=== PATIENT | female | born 1940 | race Caucasian/White ===

== ENCOUNTER 2023-10-06 10:56 | Day surgery (SDC) | payer MEDICARE ==
[2023-10-03 10:38] VITALS: BMI 21.9
[~2023-10-06 10:56] MED LIST: ALPRAZolam 0.25 MG TAB PO PRN; HEPARIN SODIUM,PORCINE (1 ML) 2,500 UNIT in SODIUM CHLORIDE 0.9% 250 ML IRRIGATION PRN; HEPARIN SODIUM,PORCINE 10,000 UNIT in SODIUM CHLORIDE 0.9% 1,000 ML IRRIGATION PRN; ZOLPIDEM 5 MG TAB PO PRN
[2023-10-06] MEDS: SODIUM CHLORIDE 0.9% 1,000 ML IV ONE (11:07)
[2023-10-06 11:37] LABS: Basophils % (A) 1 %; Eosinophils # (A) 0.2 k/uL (0-0.7); Eosinophils % (A) 4 %; HCT 38.3 % (34.0-46.0); HGB 12.4 gm/dL (11.4-16.0); Lymphocytes % (A) 22 %; MCH 32.1 pg (25.0-35.0); MCHC 32.3 g/dL (31.0-37.0); MCV 99.4 fL (80.0-100.0); Mean Platelet Volume 9.1; Monocytes # (A) 0.3 k/uL (0-1.0); Monocytes % (A) 6 %; Neutrophils # (A) 2.9 k/uL (1.3-7.7); Neutrophils % (A) 64 %; Platelet Count 185 k/uL (150-450); RBC 3.86 m/uL (3.80-5.40); RDW 13.5 % (11.5-15.5); WBC 4.5 k/uL (3.8-10.6)
[2023-10-06] MEDS: ASPIRIN 325 MG TAB PO PRN (11:37)
[2023-10-06 11:46] LABS: African American GFR (CKD) 90 (>60 ml/min/1.73 sqM); Anion Gap 1 mmol/L; Blood Urea Nitrogen 18 mg/dL (7-17); Calcium 8.9 mg/dL (8.4-10.2); Carbon Dioxide 29 mmol/L (22-30); Chloride 108 mmol/L (98-107); Glucose 95 mg/dL (74-99); Non-African American GFR(CKD) 78 (>60 ml/min/1.73 sqM); Potassium 3.9 mmol/L (3.5-5.1); Sodium 138 mmol/L (137-145)
[2023-10-06] MEDS: MIDAZOLAM 2 MG/2 ML VIAL IVP ONE (14:21)
[2023-10-06] MEDS: fentaNYL (PF) 50 MCG/ML 2 ML AMP IVP ONE (14:32)
--- NOTE | 2023-10-06 15:11 | IR ---
EXAMINATION TYPE: IR angio abdominal w runoff DATE OF EXAM: 10/06/2023 COMPARISON: NONE HISTORY: Fluoroscopy time. Fluoroscopy was provided to the referring clinician.
[2023-10-06 15:52] VITALS: RESP 18; TEMP 97.3
[2023-10-06 17:14] VITALS: PULSE 64
[2023-10-06] MEDS: EMPTY BAG 1 BAG with SODIUM CHLORIDE 0.9% 1,000 ML IV SCH (18:28)
[2023-10-06] MEDS: SODIUM CHLORIDE 0.9% 1,000 ML IV SCH (18:30)
[2023-10-06 19:09] VITALS: BP 160/80
--- NOTE | 2023-10-06 19:26 | P.PCN ---
Date of Procedure: 10/06/23 Operative Findings: AN ABDOMINAL AORTOGRAM AND BILATERAL LOWER EXTREMITIES RUNOFF PERFORMING PHYSICIAN: Caleb Jade MD PROCEDURE PERFORMED: 1. An abdominal aortogram 2. Bilateral lower extremities runoff 3. Ultrasound guided access of the right common femoral artery INDICATION: Intermittent claudication COMPLICATION: None LEVEL OF SEDATION: Moderate was sedation length of 12 minutes APPROACH: Right common femoral artery PROCEDURE DESCRIPTION: After obtaining informed consent and explaining the procedure benefits, risks, and complications, the patient was brought to the cardiac can labeler. The right groin was prepped and draped in sterile fashion. The right common femoral artery was cannulated using micropuncture technique, under ultrasound guidance. A micropuncture wire was advanced, and the micropuncture sheath was advanced over the wire, then the micropuncture sheath was exchanged over an 0.35 wire into a 5-Telugu sheath dilator assembly then the wire and dilator were removed and sheath was flushed. We did an abdominal aortogram and bilateral lower extremities runoff using 5-F rench pigtail catheter using a power injection. The catheter was initially placed at the level of the renal arteries, and it was pulled into above the bifurcation of the aorta into right and left common iliac arteries. The procedure was completed and there was no complications. SELECTIVE PERIPHERAL ANGIOGRAM: The abdominal aorta: Is angiographically normal The common iliac arteries: Have mild disease only The external iliac arteries: Have mild disease only The internal iliac arteries: Are patent The common femoral arteries: Have mild disease only Superficial femoral arteries: The right SFA has mild disease only The left SFA has critical disease in the proximal portion Popliteal arteries: Have mild disease on Below the knees: Poorly visualized CONCLUSION: Critical left SFA disease POSTPROCEDURE MANAGEMENT: CREOSOTING ENGINEER
== END 2023-10-06 20:51 | disposition home or self-care (01) ==
LOC: CATHCVL 10:56 → 6NMEDSUR 14:42 → CATHCVL 20:51
PROVIDERS: ATTEND Internal Medicine Interventional Cardiology
DX: I73.9 Peripheral vascular disease, unspecified (principal); I10 Essential (primary) hypertension; E78.5 Hyperlipidemia, unspecified; F17.210 Nicotine dependence, cigarettes, uncomplicated; Z79.899 Other long term (current) drug therapy
CPT/HCPCS: 36200; 75625; 75716; 76937; 80048; 85025; C1769 ×3; C1894; J2250; J3010

== ENCOUNTER → 2023-11-03 | Outpatient (CLI) | payer MEDICARE ==
--- NOTE | 2023-11-03 18:33 | BD ---
EXAMINATION TYPE: Axial Bone Density DATE OF EXAM: 11/03/2023 CLINICAL HISTORY: 82 years old Female. 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 Menopause before 45: no at age 46 yrs old, full hyst. RISK FACTORS HISTORY OF: hx of breast cancer x2 and anal cancer hx of left hand as an adult. MEDICATIONS: hx of breast cancer, and anal cancer, chemo x2 and radiation x2 Thyroid Medications: yes, synthroid product for about 2 yrs Osteoporosis Medications: yes, Prolia every 6 months, for 5+ yrs, prior used reclast. EXAM MEASUREMENTS: Bone mineral densitometry was performed using the Misoca System. Bone mineral density as measured about the Lumbar spine is: ----- L1-L4(G/cm2): 1.121 T Score Values are as follows: ----- L1: -1.0 ----- L2: -0.5 ----- L3: -0.8 ----- L4: 0.0 ----- L1-L4: -0.5 Z Score Values are as follows: ----- L1: 1.1 ----- L2: 1.7 ----- L3: 1.3 ----- L4: 2.2 ----- L1-L4: 1.7 Bone mineral density is her first bone density at [facility]. Bone mineral density about the R hip (g/cm2): 0.813 Bone mineral density about the L hip (g/cm2): 0.800 T Score values are as follows: -----R Neck: -1.6 -----L Neck: -2.0 -----R Total: -1.5 -----L Total: -1.6 Z Score values are as follows: -----R Neck: 0.9 -----L Neck: 0.5 -----R Total: 0.9 -----L Total: 0.8 Bone mineral density is her first bone density at [facility]. FRAX%s: The graph provided illustrates a 21.7% chance for a major osteoporotic fx and a 6.3% chance f or the hips probability for fx in 10 years time. IMPRESSION: Osteopenia (T Score between -2.5 and -1). There is slightly increased risk of fracture and the patient may be considered for treatment. Re-Screen 2-5 years. NOTE: T-SCORE=SD OF THE YOUNG ADULT MEAN.
== END | disposition home or self-care (01) ==
LOC: RADBDWWP 12:36
PROVIDERS: ATTEND Internal Medicine
DX: M85.89 Other specified disorders of bone density and structure, multiple sites (principal); M81.0 Age-related osteoporosis without current pathological fracture; Z78.0 Asymptomatic menopausal state; Z85.3 Personal history of malignant neoplasm of breast
CPT/HCPCS: 77080

== ENCOUNTER 2023-11-15 06:40 | Day surgery (SDC) | payer MEDICARE ==
[2023-11-15] MEDS ORDERED: ASPIRIN 325 MG TAB PO PRN (06:53)
[2023-11-15] MEDS: SODIUM CHLORIDE 0.9% 1,000 ML in EMPTY BAG 1 BAG IV ONE (07:10)
[2023-11-15 07:37] LABS: Basophils % (A) 1 %; Eosinophils # (A) 0.2 k/uL (0-0.7); Eosinophils % (A) 4 %; HCT 39.1 % (34.0-46.0); HGB 12.7 gm/dL (11.4-16.0); Lymphocytes # (A) 1.1 k/uL (1.0-4.8); Lymphocytes % (A) 24 %; MCH 32.4 pg (25.0-35.0); MCHC 32.4 g/dL (31.0-37.0); MCV 99.8 fL (80.0-100.0); Mean Platelet Volume 8.6; Monocytes # (A) 0.4 k/uL (0-1.0); Monocytes % (A) 8 %; Neutrophils # (A) 2.9 k/uL (1.3-7.7); Neutrophils % (A) 61 %; Platelet Count 186 k/uL (150-450); RBC 3.91 m/uL (3.80-5.40); RDW 13.3 % (11.5-15.5); WBC 4.7 k/uL (3.8-10.6)
[2023-11-15 07:38] LABS: African American GFR (CKD) 87 (>60 ml/min/1.73 sqM); Anion Gap 3 mmol/L; Blood Urea Nitrogen 19 mg/dL (7-17); Calcium 9.2 mg/dL (8.4-10.2); Carbon Dioxide 26 mmol/L (22-30); Chloride 110 mmol/L (98-107); Glucose 83 mg/dL (74-99); Non-African American GFR(CKD) 75 (>60 ml/min/1.73 sqM); Potassium 3.9 mmol/L (3.5-5.1); Sodium 139 mmol/L (137-145)
[2023-11-15] MEDS: ALPRAZolam 0.5 MG TAB PO PRN (08:10)
[2023-11-15] MEDS: SODIUM CHLORIDE 0.9% 1,000 ML IV ONE (09:31)
[2023-11-15] MEDS ORDERED: HEPARIN SODIUM 1,000 UN/ML (10ML VL) ONE (09:54)
[2023-11-15] MEDS: MIDAZOLAM 2 MG/2 ML VIAL IVP ONE (10:10)
[2023-11-15] MEDS: LIDOCAINE 1% INJ 10MG/ML (20 ML MDV) SQ ONE (10:12)
[2023-11-15] MEDS ORDERED: fentaNYL (PF) 50 MCG/ML 2 ML AMP ONE (10:13)
[2023-11-15] MEDS: fentaNYL (PF) 50 MCG/ML 2 ML AMP IVP ONE (10:15)
[2023-11-15] MEDS: HEPARIN SODIUM 1,000 UN/ML (10ML VL) IVP ONE (10:19)
[2023-11-15] MEDS ORDERED: CLOPIDOGREL 75 MG TAB ONE (10:30)
[2023-11-15] MEDS: CLOPIDOGREL 75 MG TAB PO ONE (10:33)
[2023-11-15] MEDS ORDERED: niCARdipine 25 MG/10 ML VIAL ONE (10:47)
[2023-11-15] MEDS: niCARdipine Syringe (1,000 mcg/10 mL) INTRAARTER ONE (10:48)
[2023-11-15] MEDS: NITROGLYCERIN 1000MCG/10ML SYRINGE INTRAARTER ONE (10:48)
[2023-11-15] MEDS: IOPAMIDOL-370 100ML BTL INJ ONE (10:49)
[2023-11-15] MEDS ORDERED: NITROGLYCERIN SL TABS 0.4 MG TAB SUBLINGUAL PRN (11:03)
[2023-11-15] MEDS ORDERED: RX INFO: IV CONTRAST WAS GIVEN 1 EACH MISC MISCELLANE PRN (11:03)
[2023-11-15] MEDS ORDERED: ATROPINE SULFATE 0.1 MG/ML 10ML SYRINGE IV PRN (11:03)
[2023-11-15] MEDS ORDERED: MAG HYDROX/AL HYDROX/SIMETH 30 ML CUP PO PRN (11:03)
--- NOTE | 2023-11-15 11:08 | P.PCN ---
Date of Procedure: 11/15/23 Operative Findings: PERCUTANEOUS PERIPHERAL INTERVENTION Performing physician Caleb Jade M.D. Procedure performed 1. Successful balloon angioplasty of the proximal left SFA with adjunctive use of atherectomy and intravascular ultrasound 2. Left lower extremity angiogram and right common femoral artery angiogram 3. Gradient measurement across the left common iliac artery 4. Ultrasound-guided access of the right common femoral artery Indication Left lower extremity intermittent claudication in this 82-year-old female patient who underwent an angiogram and that revealed severe left SFA disease Approach Right common femoral artery Complications None Level of sedation Moderate with a sedation time of 43 minutes Procedure description After obtaining informed consent the patient was brought to the cardiac In Tube Conversion Technician. The right common femoral artery was cannulated using micropuncture techni que under ultrasound guidance the micropuncture wire passed easily then I placed a 6 Taiwanese 70 cm sheath at the right common femoral artery. Using 5 Taiwanese rim catheter was able to go up and over and the catheter was advanced over the 035 stiff Glidewire and rim catheter. The catheter was positioned at the left common femoral artery with left common femoral artery angiogram was performed and showed two-vessel runoff below the knee with anterior tibial and peroneal with severe disease involving the left SFA. Subsequently I did wired the lesion using a 140 wire. Subsequently I did intravascular ultrasound which showed a soft plaque. Atherectomy was performed using the Hawk 1 device with extraction of plaque. Subsequently balloon angioplasty was performed using regular 5 mm balloon and subsequently 5 mm drug-coated balloon with an angiogram showing good angiographic results. Finally gradient measurement was performed across the left common iliac artery and the gradient came to be at 10 mmHg which is nonsignificant. Subsequently I did exchange the 70 cm sheath into 10 cm sheath using stiff Glidewire. By the end selective right common femoral artery angiogram was performed and the procedure was completed with no complication Postprocedure management 1. Dual antiplatelet therapy 2. Aggressive cholesterol control 3. Risk factors modification 4. Follow-up with the patient
[2023-11-15] MEDS ORDERED: DENOSUMAB 60 MG/ML 1 ML SYRINGE SQ SCH (11:15)
--- NOTE | 2023-11-15 14:02 | IR ---
EXAMINATION TYPE: IR machine captain femoral popliteal Intraoperative/procedural fluoroscopic services were provi ded. CLINICAL INDICATION:Female, 82 years old with history of left leg pain, 10.2min fluoro, 12.3Gycm2; , [facility] Total fluoroscopy time is 10.1 min. DAP: 3.41 Gycm2 uGym2 Please see the operative/procedural note for further details.
[2023-11-15 15:54] VITALS: RESP 16
[2023-11-15] MEDS: SODIUM CHLORIDE 0.9% 1,000 ML in EMPTY BAG 1 BAG IV SCH (16:25)
[2023-11-15] MEDS: ACETAMINOPHEN TAB 325 MG TAB PO PRN (17:04)
[2023-11-15] MEDS: traZODone HCL 100 MG TAB PO SCH (20:52)
[2023-11-15] MEDS: IPRATROPIUM BROMIDE 0.06% NASAL SPRAY (15 ML) EA NOSTRIL SCH (20:52)
[2023-11-15] MEDS: ATORVASTATIN 10 MG TAB PO SCH (20:52)
[2023-11-15] MEDS: ASPIRIN 81 MG PO SCH (20:52)
[2023-11-15] MEDS: CALCIUM CARBONATE 500 MG CHEWABLE PO SCH (20:52)
[2023-11-15] MEDS ORDERED: THC PO SCH (21:00)
[2023-11-15] MEDS: ZOLPIDEM 5 MG TAB PO PRN (23:51)
[2023-11-16] MEDS: LEVOTHYROXINE 50 MCG TAB PO SCH (06:15)
[2023-11-16 08:02] LABS: African American GFR (CKD) >90 (>60 ml/min/1.73 sqM); Anion Gap 4 mmol/L; Blood Urea Nitrogen 13 mg/dL (7-17); Calcium 8.9 mg/dL (8.4-10.2); Carbon Dioxide 24 mmol/L (22-30); Chloride 110 mmol/L (98-107); Glucose 88 mg/dL (74-99); Non-African American GFR(CKD) 84 (>60 ml/min/1.73 sqM); Sodium 138 mmol/L (137-145)
[2023-11-16 09:26] VITALS: BP 112/67; PULSE 67; TEMP 98
--- NOTE | 2023-11-16 09:55 | P.DS ---
Providers Attending physician: Caleb Jade Consults: 11/15/23 11:03 Consult Physician Routine Consulting Provider: [facility] Consult Reason/Comments: Post Interventional patient Do you want consulting provider notified?: Already Contacted Primary care physician: Epi Chambers Hospital Course: This is an 82-year-old patient who underwent balloon angioplasty of the proximal left SFA yesterday with Dr. Jade. Patient examined this morning the bedside. Patient states her leg feels significantly better this morning. Patient has positive pulses. She denies chest pain or shortness of breath. Vital signs are stable. The patient is being discharged home on dual antiplatelet therapy with aspirin and Plavix for at least 6 months. Patients atorvastatin also increased to 40 mg at night Patient is stable for discharge home today. Please see EMR for further hospital course details Discharge diagnosis Left lower extremity intermittent claudication, status post balloon angioplasty of proximal left SFA Nurse practitioner note has been reviewed by physician. Signing provider agrees with the documented findings, assessment, and plan of care documented by HEAVY TRUCK MECHANIC as a scribe. Plan - Discharge Summary Discharge Rx Participant: No New Discharge Prescriptions: New Atorvastatin [Lipitor] 40 mg PO HS #90 tablet Clopidogrel [Plavix] 75 mg PO DAILY #90 tablet Continue Ipratropium [place] 0.06%Nasal [Atrovent Nasal 0.06%] 2 spray EA NOSTRIL BID Levothyroxine Sodium [Synthroid] 50 mcg PO QAM traZODone HCL 200 mg PO HS Denosumab [Prolia] 60 mg SQ Q182D Thc 200 mg PO HS Calcium Citrate 500 mg PO BID Aspirin [Adult Low Dose Aspirin EC] 81 mg PO HS Discharge Medication List Aspirin [Adult Low Dose Aspirin EC] 81 mg PO HS 10/03/23 [History] Calcium Citrate 500 mg PO BID 10/03/23 [History] Denosumab [Prolia] 60 mg SQ Q182D 10/03/23 [History] Ipratropium [place] 0.06%Nasal [Atrovent Nasal 0.06%] 2 spray EA NOSTRIL BID 10/03/23 [History] Levothyroxine Sodium [Synthroid] 50 mcg PO QAM 10/03/23 [History] Thc 200 mg PO HS 10/03/23 [History] traZODone HCL 200 mg PO HS 10/03/23 [History] Atorvastatin [Lipitor] 40 mg PO HS #90 tablet 11/16/23 [Rx] Clopidogrel [Plavix] 75 mg PO DAILY #90 tablet 11/16/23 [Rx] Follow up Appointment(s)/Referral(s): Caleb Jade MD [STAFF PHYSICIAN] - 1 Week (office will call with follow up appt date and time) Patient Instructions/Handouts: Peripheral Vascular Angioplasty (DC)
[2023-11-16] MEDS: CLOPIDOGREL 75 MG TAB PO SCH (10:09)
== END 2023-11-16 11:19 | disposition home or self-care (01) ==
LOC: CATHCVL 06:40 → 3SCARD 14:32 → CATHCVL 11-16 11:19
PROVIDERS: ATTEND Internal Medicine Interventional Cardiology
DX: I70.213 Atherosclerosis of native arteries of extremities with intermittent claudication, bilateral legs (principal)
CPT/HCPCS: 37225; 37252; 80048 ×2; 85025; C1894 ×2; C1769 ×4; C1725; C1714; C1753; C2623; J2250; J2001; J3010; J1644; Q9967; J2305

== ENCOUNTER → 2023-12-06 | Outpatient (CLI) | payer MEDICARE ==
--- NOTE | 2023-12-06 12:49 | US ---
EXAMINATION TYPE: US kidneys/renal and bladder DATE OF EXAM: 12/06/2023 COMPARISON: NONE CLINICAL INDICATION: Female, 83 years old with history of R94.4 Decreased GFR; Patient states leaky b ladder, Hx of anal cancer and radiation treatment in 2021; Patient denies any other signs or symptoms at this time EXAM MEASUREMENTS: Right Kidney: 8.4 x 4.6 x 4.4 Left Kidney: 9.0 x 5.0 x 4.5 Post Void Residual Volume: NAmL Right Kidney: Multiple calcifications seen throughout Left Kidney: Multiple calcifications seen throughout Bladder: Not fully distended; patient stated bladder felt full Bilateral Jets seen: No Normal Post Void Residual: NA There is no evidence for hydronephrosis at this point in time. No nephrolithiasis is seen. No peterson s are identified. The urinary bladder is anechoic. IMPRESSION: 1. No evidence for obstructive uropathy. 2. Nonobstructing bilateral renal calculi versus echogenic renal sinus fat.
== END | disposition home or self-care (01) ==
LOC: RADUSWWP 11:20
PROVIDERS: ATTEND Internal Medicine
DX: N20.0 Calculus of kidney (principal); R94.4 Abnormal results of kidney function studies
CPT/HCPCS: 76770

== ENCOUNTER → 2024-03-07 | Outpatient (CLI) | payer MEDICARE ==
--- NOTE | 2024-03-07 14:01 | XR ---
EXAMINATION TYPE: XR lumbar spine 2 or 3V DATE OF EXAM: 03/07/2024 CLINICAL HISTORY: pain TECHNIQUE: Three views of the lumbar spine are submitted. COMPARISON: None. FINDINGS: There are 5 lumbar type vertebral bodies identified. The lumbar spine shows satisfactory alignment w ithout evidence of acute fracture or dislocation. Vertebral body heights are within normal limits. Multilevel disc space narrowing with endplate sclerosis and anterior osteophytosis. Multilevel facet arthropathy. The overlying soft tissue appears unremarkable. Atherosclerotic calcification of the ao rta. IMPRESSION: 1. No acute fracture or dislocation is seen in the lumbar spine. 2. Mild to moderate multilevel degenerative disc disease and facet arthropathy. [facility], , 03/07/2024 1:59 PM
== END | disposition home or self-care (01) ==
LOC: RADXRMAIN 13:01
PROVIDERS: ATTEND Internal Medicine
CPT/HCPCS: 72100

== ENCOUNTER 2024-05-07 08:50 | Day surgery (SDC) | payer MEDICARE ==
[~2024-05-07 08:50] MED LIST changes: -ALPRAZolam 0.25 MG TAB PO PRN; +ALPRAZolam 0.5 MG TAB PO PRN; -HEPARIN SODIUM,PORCINE (1 ML) 2,500 UNIT in SODIUM CHLORIDE 0.9% 250 ML IRRIGATION PRN; -HEPARIN SODIUM,PORCINE 10,000 UNIT in SODIUM CHLORIDE 0.9% 1,000 ML IRRIGATION PRN; +NITROGLYCERIN SL TABS 0.4 MG TAB SUBLINGUAL PRN; -ZOLPIDEM 5 MG TAB PO PRN
[2024-05-07] MEDS: ATORVASTATIN 80 MG TAB PO STA (09:29)
[2024-05-07] MEDS: ASPIRIN 325 MG TAB PO STA (09:29)
[2024-05-07] MEDS: EMPTY BAG 1 BAG with SODIUM CHLORIDE 0.9% 1,000 ML IV ONE (09:42)
[2024-05-07 09:48] LABS: Basophils % (A) 0 %; Eosinophils # (A) 0.1 k/uL (0-0.7); Eosinophils % (A) 1 %; HCT 40.3 % (34.0-46.0); HGB 13.2 gm/dL (11.4-16.0); Lymphocytes # (A) 1.2 k/uL (1.0-4.8); Lymphocytes % (A) 22 %; MCHC 32.8 g/dL (31.0-37.0); MCV 97.5 fL (80.0-100.0); Mean Platelet Volume 8.8; Monocytes # (A) 0.3 k/uL (0-1.0); Monocytes % (A) 6 %; Neutrophils # (A) 3.9 k/uL (1.3-7.7); Neutrophils % (A) 69 %; Platelet Count 167 k/uL (150-450); RBC 4.14 m/uL (3.80-5.40); RDW 13.4 % (11.5-15.5); WBC 5.6 k/uL (3.8-10.6)
[2024-05-07 09:54] LABS: African American GFR (CKD) 77 (>60 ml/min/1.73 sqM); Anion Gap 6 mmol/L; Blood Urea Nitrogen 22 mg/dL (7-17); Calcium 9.5 mg/dL (8.4-10.2); Carbon Dioxide 26 mmol/L (22-30); Chloride 106 mmol/L (98-107); Glucose 91 mg/dL (74-99); Non-African American GFR(CKD) 67 (>60 ml/min/1.73 sqM); Potassium 3.9 mmol/L (3.5-5.1); Sodium 138 mmol/L (137-145)
[2024-05-07] MEDS: IV FLUID CONTINUATION 1,000 ML IV ONE (10:16)
[2024-05-07] MEDS: HEPARIN SODIUM,PORCINE (1 ML) 2,500 UNIT in SODIUM CHLORIDE 0.9% 250 ML IRRIGATION PRN (10:47)
[2024-05-07] MEDS: HEPARIN SODIUM,PORCINE 10,000 UNIT in SODIUM CHLORIDE 0.9% 1,000 ML IRRIGATION PRN (10:47)
[2024-05-07] MEDS: MIDAZOLAM 2 MG/2 ML VIAL IVP ONE (10:48)
[2024-05-07] MEDS: LIDOCAINE 1% INJ 10MG/ML (20 ML MDV) SQ ONE (10:51)
[2024-05-07] MEDS: VERAPAMIL SYRINGE (5 MG/10 ML) INTRAARTER ONE (10:52)
[2024-05-07] MEDS: fentaNYL (PF) 50 MCG/1 ML VIAL IVP ONE (10:52)
[2024-05-07] MEDS: HEPARIN SODIUM 1,000 UN/ML (10ML VL) IV ONE (10:55)
[2024-05-07] MEDS: ENALAPRILAT 1.25 MG/ML 1 ML VIAL IV ONE (11:08)
[2024-05-07] MEDS: hydrALAZINE HCL 20 MG/ML 1 ML VIAL IV ONE (11:08)
[2024-05-07] MEDS: NITROGLYCERIN 1000MCG/10ML SYRINGE INTRACORON ONE (11:18)
[2024-05-07] MEDS: CLOPIDOGREL 75 MG TAB PO ONE (11:20)
[2024-05-07] MEDS: IOPAMIDOL-370 100ML BTL INJ ONE ×2 (11:23→11:39)
[2024-05-07] MEDS: IOPAMIDOL-250 100ML BTL INTRAARTER ONE (11:39)
[2024-05-07] MEDS ORDERED: DENOSUMAB 60 MG/ML 1 ML SYRINGE SQ SCH (11:45)
--- NOTE | 2024-05-07 11:52 | P.PCN ---
Date of Procedure: 05/07/24 Operative Findings: CARDIAC CATHETERIZATION AND PERCUTANEOUS CORONARY INTERVENTION PERFORMING PHYSICIAN: Caleb Jade MD, [facility] PROCEDURE PERFORMED: 1. Selective right and left coronary angiogram 2. Left heart catheterization 3. Successful stenting of mid LAD using 2.75 x 18 mm Xience STEFAN with an exce llent angiographic results 4. Adjunctive use of IVUS and Dobler wire 5. Ultrasound-guided access of the right radial artery INDICATION: Symptomatic 83-year-old female patient COMPLICATION: None APPROACH: Right radial art LEVEL OF SEDATION: Moderate with the sedation time off 30 minutes PROCEDURE DESCRIPTION: After obtaining informed consent the patient was brought to the cardiac Caustic Plant Worker with right radial artery was cannulated using micropuncture technique under ultrasound guidance a micropuncture wire passed easily then I placed a 6 English 11 cm sheath at the right radial artery and give the patient 2 mg of verapamil intra-arterial and 5000's of heparin intravenous. Selective right and left coronary angiogram performed using JR4 and JL 3.5 catheters with left heart catheterization was performed using a pigtail catheter. After that I decided to do an IFR of the LAD with after zeroing the Doppler wire and equalized in between the Doppler wire and guiding catheter which was JL 3.5 guiding catheter the left main was engaged and the LAD was wired. We did an IFR and that came in to be at 0.69. At that point I decided to intervene on the LAD with I did advance a whisper wire and I pulled the Dobler wire out because of his tortuous LAD and the whisper was going smoothly. I did after that intravascular ultrasound which revealed a diameter around 2.75 mm. Balloon angioplasty was performed using 2.5 mm balloon before I deployed 2.75 x 18 mm stent where the stent was positioned under fluoroscopy guidance and deployed under fluoroscopy guidance. Postdilatation was performed after IVUS was performed and that was performed using 2.75 mm NC balloon. Final angiogram showed excellent angiographic results and the patient tolerated the procedure very well SELECTIVE CORONARY ANGIOGRAM: The right coronary artery: Large caliber vessel and a dominant vessel with mild disease on Left main: Is angiographically normal. Bifurcates into an LCx and LAD The left circumflex: Large-caliber vessel nondominant vessel appears to be angiographically normal and gives rise into an OM which seems to be normal The left anterior descending artery: Large caliber vessel with intermediate to severe lesion involving the midportion documented to be flow-limiting by Doppler wire HEMODYNAMICS: The LVEDP was about 18 to 20 mmHg with no significant gradient across aortic valve CONCLUSION: Intermediate to severe disease involving the mid LAD documented to be flow- limiting by Doppler wire. I did perform PCI of the LAD POSTPROCEDURE MANAGEMENT: 1. Dual antiplatelet therapy using aspirin and Plavix for at least 6 month 2. Aggressive cholesterol control 3. Follow-up with the patient
--- NOTE | 2024-05-07 11:56 | P.PCN ---
Date of Procedure: 05/07/24 Operative Findings: AN ABDOMINAL AORTOGRAM AND BILATERAL LOWER EXTREMITIES RUNOFF PERFORMING PHYSICIAN: Caleb Jade MD PROCEDURE PERFORMED: 1. An abdominal aortogram 2. Bilateral lower extremities runoff INDICATION: Symptomatic 83-year-old female patient with abnormal lower extremities arterial duplex study COMPLICATION: None LEVEL OF SEDATION: Moderate was sedation length of moderate to sedation length of 12 minutes APPROACH: Right common femoral artery PROCEDURE DESCRIPTION: Regarding the access please refer to the heart catheterization procedure performed from the right radial approach. After that I did advance a 5 Polish pigtail catheter over 035 wire to the descending aorta under fluoroscopy guidance. The catheter was initially placed at the level of the renal arteries and it was advanced into above the bifurcation of the aorta at the right and left common iliac artery. The procedure was completed and there was no complications. SELECTIVE PERIPHERAL ANGIOGRAM: The abdominal aorta: Appears to be angiographically normal The common iliac arteries: Appears to be angiographically normal The external iliac arteries: The right external iliac artery appeared to have intermediate to severe lesion in the left external iliac artery appears to be normal The internal iliac arteries: Both internal iliac arteries are patent The common femoral arteries: The right common and left common femoral arteries appear to have intermediate to severe disease bilaterally Superficial femoral arteries: Both SFA appeared to be intact Popliteal arteries: Both popliteal this appears to be into Below the knees: 3 vessels in of below the knee bilaterally but overall the arteries were poorly visualized CONCLUSION: Intermediate to severe disease involving the right external iliac artery Intermediate to severe disease involving bilateral common femoral arteries POSTPROCEDURE MANAGEMENT: Consider medical treatment at this point
--- NOTE | 2024-05-07 12:10 | IR ---
Intraoperative/procedural fluoroscopic services were provided for angiogram with runoff. Total fluoro scopy time is 15.8 minutes with a total of 379 submitted images to PACS. Total DAP 17.9 Gycm2. Gisela ca see the operative note for further details. [facility], , 05/07/2024 12:08 PM
[2024-05-07] MEDS ORDERED: NITROGLYCERIN SL TABS 0.4 MG TAB SUBLINGUAL PRN (12:16)
[2024-05-07] MEDS ORDERED: ZOLPIDEM 5 MG TAB PO PRN (12:16)
[2024-05-07] MEDS ORDERED: ATROPINE SULFATE 0.1 MG/ML 10ML SYRINGE IV PRN (12:16)
[2024-05-07] MEDS ORDERED: RX INFO: IV CONTRAST WAS GIVEN 1 EACH MISC MISCELLANE PRN (12:16)
[2024-05-07] MEDS ORDERED: MAG HYDROX/AL HYDROX/SIMETH 30 ML CUP PO PRN (12:16)
[2024-05-07] MEDS: ACETAMINOPHEN TAB 325 MG TAB PO PRN (13:22)
[2024-05-07] MEDS: SODIUM CHLORIDE 0.9% 1,000 ML in EMPTY BAG 1 BAG IV SCH ×2 (13:24)
[2024-05-07] MEDS ORDERED: THC PO SCH (21:00)
[2024-05-07] MEDS: traZODone HCL 100 MG TAB PO SCH (21:43)
[2024-05-07] MEDS: CALCIUM CARBONATE 500 MG CHEWABLE PO SCH (21:43)
[2024-05-07] MEDS: ATORVASTATIN 40 MG TAB PO SCH (21:43)
[2024-05-07] MEDS: ALPRAZolam 0.25 MG TAB PO PRN (21:45)
[2024-05-08 03:00] VITALS: RESP 16
[2024-05-08] MEDS: IPRATROPIUM BROMIDE 0.06% NASAL SPRAY (15 ML) EA NOSTRIL SCH (05:20)
[2024-05-08] MEDS: LEVOTHYROXINE 50 MCG TAB PO SCH (06:01)
[2024-05-08 07:34] VITALS: BP 157/70; PULSE 67; TEMP 98
[2024-05-08] MEDS: CHOLECALCIFEROL 25 MCG (1000 IU) TABLET PO SCH (08:16)
[2024-05-08] MEDS: VIT A,C & E-LUTEIN-MINERALS 1 EACH TAB PO SCH (08:16)
[2024-05-08] MEDS: CLOPIDOGREL 75 MG TAB PO SCH (08:16)
[2024-05-08 08:28] LABS: African American GFR (CKD) 84 (>60 ml/min/1.73 sqM); Non-African American GFR(CKD) 73 (>60 ml/min/1.73 sqM)
[2024-05-08] MEDS: ASPIRIN 81 MG PO STA (09:37)
--- NOTE | 2024-05-08 10:11 | P.DS ---
Providers Attending physician: Caleb Jade Consults: 05/07/24 12:16 Consult Physician Routine Consulting Provider: [facility] Consult Reason/Comments: Post Interventional patient Do you want consulting provider notified?: Already Contacted Primary care physician: Epi Chambers [facility] Course: The patient is a pleasant 83-year-old female patient who underwent yesterday heart catheterization and PCI of the LAD She was seen and evaluated this morning. She is asymptomatic and hemodynamically stable. The patient is going to be discharged home on dual antiplatelet therapy along with a statin and I will follow-up with the patient next week in the office Plan - Discharge Summary New Discharge Prescriptions: No Action Ipratropium [place] 0.06%Nasal [Atrovent Nasal 0.06%] 2 spray EA NOSTRIL BID Levothyroxine Sodium [Synthroid] 50 mcg PO QAM traZODone HCL 200 mg PO HS Denosumab [Prolia] 60 mg SQ Q182D Thc 200 mg PO HS Calcium Citrate 1,000 mg PO BID Atorvastatin [Lipitor] 40 mg PO HS #90 tablet Clopidogrel [Plavix] 75 mg PO QAM Vit D3(Unknown Dose) 1 dose PO QAM Occuvite(Unknown Dose) 1 dose PO QAM Aspirin [Adult Low Dose Aspirin EC] 81 mg PO Discharge Medication List Calcium Citrate 1,000 mg PO BID 10/03/23 [History] Denosumab [Prolia] 60 mg SQ Q182D 10/03/23 [History] Ipratropium [place] 0.06%Nasal [Atrovent Nasal 0.06%] 2 spray EA NOSTRIL BID 10/03/23 [History] Levothyroxine Sodium [Synthroid] 50 mcg PO QAM 10/03/23 [History] Thc 200 mg PO HS 10/03/23 [History] traZODone HCL 200 mg PO HS 10/03/23 [History] Atorvastatin [Lipitor] 40 mg PO HS #90 tablet 11/16/23 [Rx] Clopidogrel [Plavix] 75 mg PO QAM 04/08/24 [History] Occuvite(Unknown Dose) 1 dose PO QAM 04/08/24 [History] Vit D3(Unknown Dose) 1 dose PO QAM 04/08/24 [History] Aspirin [Adult Low Dose Aspirin EC] 81 mg PO 05/08/24 [History] Follow up Appointment(s)/Referral(s): Caleb Jade MD [STAFF PHYSICIAN] - (OFFICE WILL CALL YOU FOR APPOINTMENT DATE AND TIME ) Patient Instructions/Handouts: *Surgery [facility] - After Heart Catheterization - Propeller Engineer Instructions, Moderate Sedation (DC), Angiography (DC) Activity/Diet/Wound Care/Special Instructions: NO DRIVING FOR THREE DAYS AVOID PUSHING PULLING LIFTING MORE THAN 10 LBS FOR FIVE DAYS TO AVOID BLEED RISK OK TO SHOWER TOMORROW TOMORROW BUT NO SOAKING IN TUBS, SWIMMING FOR FIVE DAYS TO AVOID RISK OF INFECTION. SIGNS OF INFECTION IE: FEVER, RASH, UNUSUAL DRAINAGE, HARD KNOT OR LUMP CONTACT DR TO BE EVALUATED. MEDICATIONS DIRECTED BY CARDIOLOGY. FALL PRECAUTIONS TODAY DUE TO SEDATION GIVEN
== END 2024-05-08 10:20 | disposition home or self-care (01) ==
LOC: CATHCVL 08:50 → 6NMEDSUR 11:45 → CATHCVL 05-08 10:20
PROVIDERS: ATTEND Internal Medicine Interventional Cardiology
DX: I25.10 Atherosclerotic heart disease of native coronary artery without angina pectoris (principal); I10 Essential (primary) hypertension; E78.5 Hyperlipidemia, unspecified; I70.213 Atherosclerosis of native arteries of extremities with intermittent claudication, bilateral legs; Z79.620 Long term (current) use of immunosuppressive biologic; Z79.890 Hormone replacement therapy; Z79.82 Long term (current) use of aspirin; Z79.02 Long term (current) use of antithrombotics/antiplatelets; Z79.899 Other long term (current) drug therapy; Z87.891 Personal history of nicotine dependence; Z85.3 Personal history of malignant neoplasm of breast; Z85.048 Personal history of other malignant neoplasm of rectum, rectosigmoid junction, and anus; Z82.49 Family history of ischemic heart disease and other diseases of the circulatory system
CPT/HCPCS: 92978; 93458; 93799; 75625; 75716; 80048; 82565; 85025; C9600; J2250; J0360; J1644 ×3; J2003; Q9966; Q9967; J3010; J2305

== ENCOUNTER 2024-06-20 13:22 | Emergency (ER) | payer MEDICARE ==
[2024-06-20 13:39] VITALS: RESP 18
--- NOTE | 2024-06-20 13:54 | ED ---
General Adult HPI - General Chief complaint: Fall Stated complaint: fall Time Seen by Provider: 06/20/24 13:41 Source: patient, family, RN notes reviewed Mode of arrival: ambulatory Limitations: no limitations - History of Present Illness Initial comments: Patient is an 83-year-old female presenting to the emergency department with concerns for head injury. Patient has not been feeling well for several days now. Patient does have chest congestion and cough. Patient felt somewhat weak last night and did fall and hit her head. No syncope. No loss of consciousness. Patient is on Plavix. When patient fell she felt very weak and did have some incontinence. It took patient almost an hour to crawl into the bathroom and then back into bed. Patient states her strength has returned and she is ambulatory and has no concerns for that at this time. - Related Data Home Medications Medication Instructions Recorded Confirmed Calcium Citrate 500 mg PO BID 10/03/23 06/20/24 Denosumab [Prolia] 60 mg SQ Q182D 10/03/23 06/20/24 Ipratropium [place] 0.06%Nasal 2 spray EA NOSTRIL BID 10/03/23 06/20/24 [Atrovent Nasal 0.06%] Levothyroxine Sodium [Synthroid] 50 mcg PO DAILY 10/03/23 06/20/24 Thc 200 mg PO HS 10/03/23 06/20/24 traZODone HCL 200 mg PO HS 10/03/23 06/20/24 Clopidogrel [Plavix] 75 mg PO DAILY 04/08/24 06/20/24 Cholecalciferol (Vitamin D3) 50 mcg PO DAILY 06/20/24 06/20/24 [Vitamin D3 (50 Mcg = 2000 Iu)] Mv-Mn/Om3/Dha/Epa/Fish/Lut/Xochitl 1 cap PO DAILY 06/20/24 06/20/24 [Ocuvite Adult 50 Plus Softgel] Previous Rx's Medication Instructions Recorded Atorvastatin [Lipitor] 40 mg PO HS #90 tablet 11/16/23 Allergies Allergy/AdvReac Type Severity Reaction Status Date / Time meperidine [From Demerol] Allergy Spastic Verified 06/20/24 14:55 -whole body Review of Systems ROS Statement: Those systems with pertinent positive or pertinent negative responses have been documented in the HPI. ROS Other: All systems not noted in ROS Statement are negative. Constitutional: Denies: fever Eyes: Denies: eye pain ENT: Denies: ear pain Respiratory: Reports: as per HPI, cough Cardiovascular: Denies: chest pain Endocrine: Reports: fatigue Gastrointestinal: Denies: abdominal pain Neurological: Reports: as per HPI Past Medical History Past Medical History: Blood Disorder, Cancer, GERD/Reflux, Hearing Disorder / Deafness, Hyperlipidemia, Osteoarthritis (OA), Thyroid Disorder, Vascular Disorder Additional Past Medical History / Comment(s): See Dr Jade's H&P. Hx Anemia after chemo. Hx right breast cancer in 2012, had chemo and radiation, hx anal cancer in 2021, had chemo and radiation. Bilateral hearing aid use. PAD. L subclavian stenosis. Insomnia. History of Any Multi-Drug Resistant Organisms: None Reported Past Surgical History: Breast Surgery, Hysterectomy, Tubal Ligation Additional Past Surgical History / Comment(s): Rosas mastectomy; breast implants; face lift. Abdominal aortogram. Past Anesthesia/Blood Transfusion Reactions: No Reported Reaction Additional Past Anesthesia/Blood Transfusion Reaction / Comment(s): Blood transfusion many years ago-no reaction. Past Psychological History: Anxiety, Depression Smoking Status: Former smoker - Past Family History Daughter(s) Family Medical History: Cancer Additional Family Medical History / Comment(s): Breast cancer Brother(s) Family Medical History: Cancer Additional Family Medical History / Comment(s): Prostate cancer Father Family Medical History: Cancer Additional Family Medical History / Comment(s): Prostate cancer General Exam Limitations: no limitations General appearance: alert, in no apparent distress Head exam: Present: other (Small abrasion/laceration posterior scalp. Soft tissue swelling and ecchymosis right forehead) Eye exam: Present: normal appearance, PERRL, EOMI ENT exam: Present: normal oropharynx Neck exam: Present: normal inspection. Absent: tenderness Respiratory exam: Present: normal lung sounds bilaterally Cardiovascular Exam: Present: regular rate, normal rhythm, normal heart sounds GI/Abdominal exam: Present: soft. Absent: distended, tenderness Extremities exam: Present: normal inspection. Absent: pedal edema, calf tenderness Back exam: Absent: tenderness Neurological exam: Present: alert, oriented X3, CN II-XII intact. Absent: motor sensory deficit Psychiatric exam: Present: normal affect, normal mood Skin exam: Present: other (Ecchymosis and swelling right forehead. Abrasion/laceration posterior scalp) Course Vital Signs 06/20/24 13:34 Temperature 98.2 F Pulse Rate 77 Respiratory 18 Rate Blood Pressure 117/61 O2 Sat by Pulse 96 Oximetry Medical Decision Making - Medical Decision Making Patient has very small laceration posterior scalp, less than half a centimeter. Discussion had with patient regarding closure and patient refuses. Area was cleansed with water. Was pt. sent in by a medical professional or institution (, ERIN, ELEVATOR MECHANIC, urgent care, hospital, or correction...) When possible be specific @ -No Did you speak to anyone other than the patient for history (EMS, parent, family, police, friend...)? What history was obtained from this source @ -Case also discussed with daughter who helps provide additional history of the patient did hit her head on the drywall. Did you review nursing and triage notes (agree or disagree)? Why? @ -I reviewed and agree with nursing and triage notes Were old charts reviewed (outside hosp., previous admission, EMS record, old EKG, old radiological studies, urgent care reports/EKG's, correction records)? Report findings @ -No old charts were reviewed Differential Diagnosis (chest pain, altered mental status, abdominal pain women, abdominal pain men, vaginal bleeding, weakness, fever, dyspnea, syncope, headache, dizziness, GI bleed, back pain, seizure, CVA, palpatations, mental health, musculoskeletal)? @ -Differential Weakness: Hypoglycemia, shock, sepsis, hyponatremia, anemia, infection, HI, ETOH, adverse medicine reaction, overdose, stroke, this is not meant to be an all-inclusive list. EKG interpreted by me (3pts min.). @ -As above X-rays interpreted by me (1pt min.). @ -Chest x-ray shows no acute process CT interpreted by me (1pt min.). @ -CT scan of the brain and C-spine shows no acute abnormality U/S interpreted by me (1pt. min.). @ -None done What testing was considered but not performed or refused? (CT, X-rays, U/S, labs)? Why? @ -None What meds were considered but not given or refused? Why? @ -None Did you discuss the management of the patient with other professionals (professionals i.e. , PA, ELEVATOR MECHANIC, lab, RT, psych nurse, social worker masters, tennis coach, teacher, public safety officer, caser in)? Give summary @ -CT results were discussed with radiologist Was smoking cessation discussed for >3mins.? @ -No Was critical care preformed (if so, how long)? @ -No Were there social determinants of health that impacted care today? How? (Homelessness, low income, unemployed, alcoholism, drug addiction, transportation, low edu. Level, literacy, decrease access to med. care, skilled nursing, rehab)? @ -No Was there de-escalation of care discussed even if they declined (Discuss DNR or withdrawal of care, Hospice)? DNR status @ -No What co-morbidities impacted this encounter? (DM, HTN, Smoking, COPD, CAD, Cancer, CVA, ARF, Chemo, Hep., AIDS, mental health diagnosis, sleep apnea, morbid obesity)? @ -Patient believes she is on blood thinner Was patient admitted / discharged? Hospital course, mention meds given and route, prescriptions, significant lab abnormalities, going to OR and other pertinent info. @ -Patient presents with cough congestion and fall and head injury. Head CT unremarkable. Chest x-ray unremarkable. Patient positive for flu. Patient is not a candidate for Tamiflu secondary to symptoms greater than 48 hours. Patient reevaluated. Patient and family updated. Undiagnosed new problem with uncertain prognosis? @ -No Drug Therapy requiring intensive monitoring for toxicity (Heparin, Nitro, Insulin, Cardizem)? @ -No Were any procedures done? @ -No Diagnosis/symptom? @ -Influenza, head injury Acute, or Chronic, or Acute on Chronic? @ -Acute, acute Uncomplicated (without systemic symptoms) or Complicated (systemic symptoms)? @ -Default Side effects of treatment? @ -No Exacerbation, Progression, or Severe Exacerbation? @ -No Poses a threat to life or bodily function? How? (Chest pain, [place], HI, pneumonia, PE, COPD, DKA, ARF, appy, cholecystitis, CVA, Diverticulitis, Homicidal, Suicidal, threat to staff... and all critical care pts) @ -No - Lab Data Lab Results 06/20/24 Range/Units 13:53 Influenza Type A (PCR) Detected A (Not Detectd) Influenza Type B (PCR) Not Detected (Not Detectd) RSV (PCR) Not Detected (Not Detectd) SARS-CoV-2 (PCR) Not Detected (Not Detectd) Disposition Clinical Impression: Fall, Influenza, Head injury Disposition: HOME SELF-CARE Condition: Stable Instructions (If sedation given, give patient instructions): Influenza (ED), Head Injury (ED) Additional Instructions: Hold all blood thinners for 24 hours. [id number] Tylenol as needed. Return for weakness, confusion, difficulty breathing, uncontrolled fevers, worsening or changing symptoms or any other concerns. Is patient prescribed a controlled substance at d/c from ED?: No Referrals: Epi Chambers MD [Primary Care Provider] - 1-2 days Time of Disposition: 15:29
--- NOTE | 2024-06-20 14:30 | XR ---
EXAMINATION TYPE: XR chest 2V DATE OF EXAM: 06/20/2024 2:12 PM COMPARISON: None. CLINICAL INDICATION: Female, 83 years old with history of cough, TECHNIQUE: XR chest 2V view(s) obtained. FINDINGS: The heart size is normal. The pulmonary vasculature is normal. The lungs are clear. IMPRESSION: 1. No acute pulmonary process. [facility], , 06/20/2024 2:28 PM
--- NOTE | 2024-06-20 14:41 | CT ---
EXAMINATION TYPE: CT brain boraine wo con DATE OF EXAM: 06/20/2024 2:07 PM COMPARISON: None. CLINICAL INDICATION: Female, 83 years old with history of fall, CODE COAG: Fall on thinners., pain TECHNIQUE: CT of the brain is performed utilizing 3 mm thick sections through the posterior fossa and 3 mm thick sections through the remaining calvarium. Study is performed within 24 hours of arrival to the hospital. Contrast used: mL of , (none if empty) CT DLP: 1245.6 mGycm, Automated exposure control for dose reduction was used. FINDINGS: No abnormal hyperdensity is present to suggest an acute intracranial hemorrhage. No mass lesion is evident. No acute infarcts are evident. Periventricular white matter hypodensity is present, likely on the ba sis of chronic white matter ischemic change. Ventricles and sulci are appropriate for the patient age. Mild mucosal thickening is within ethmoid air cells. Remaining paranasal sinuses and mastoid air cell s are clear. No acute fractures are evident. Report was called to the emergency room by Dr. Ward by telephone at the time of interpretation. IMPRESSIONS: 1. No acute intracranial process. Follow-up MRI can be performed as clinically indicated. 2. Mild chronic appearing periventricular white matter ischemic-type changes. CT cervical spine. COMPARISON: None TECHNIQUE: CT of the cervical spine is performed in the axial plane at 2 mm thick sections. Reconstr ucted images in the coronal, and sagittal plane are reviewed on the computer. FINDINGS: No acute fractures are evident. Vertebral body alignment is normal. Degenerative disc changes are present at C5-6 C6-7 with loss of disc height. Minimal vacuum disc phen omenon is present C6-7. Vertebral body heights are preserved. No spinal canal stenosis is evident. Mild foraminal narrowing from uncovertebral joint hypertrophy is present at C3-4, left C4-5 IMPRESSION: 1. No acute osseous abnormality cervical spine. 2. Degenerative disc changes lower cervical spine. 3. Mild foraminal narrowing from uncovertebral joint hypertrophy discussed above. [facility], , 06/20/2024 2:39 PM
[2024-06-20] MEDS: DIPH,PERTUS(ACELL)TETVAC-LF 0.5 ML VIAL IM ONE (14:45)
[2024-06-20 14:55] LABS: Influenza A Detected (Not Detectd); Influenza B Not Detected (Not Detectd); RSV Not Detected (Not Detectd)
[2024-06-20 15:47] VITALS: BP 135/73; PULSE 76; TEMP 98.1
== END 2024-06-20 15:48 | disposition home or self-care (01) ==
LOC: EC 13:22
DX: S09.90XA Unspecified injury of head, initial encounter (principal); J10.1 Influenza due to other identified influenza virus with other respiratory manifestations; X58.XXXA Exposure to other specified factors, initial encounter; Z11.52 Encounter for screening for COVID-19; Z88.8 Allergy status to other drugs, medicaments and biological substances; Z23 Encounter for immunization
CPT/HCPCS: 70450; 71046; 72125; 87636; 90471; 90715; 99284

== ENCOUNTER → 2024-07-26 | Outpatient (CLI) | payer MEDICARE ==
[2024-07-26 09:21] LABS: African American GFR (CKD) >90 (>60 ml/min/1.73 sqM); Blood Urea Nitrogen 20 mg/dL (7-17); Non-African American GFR(CKD) 78 (>60 ml/min/1.73 sqM)
--- NOTE | 2024-07-26 15:12 | NM ---
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 Images acq uired 5 hours post injection. FINDINGS: The focus of increased radiotracer uptake in the midthoracic spine on posterior projection does not r eproduce on additional spot projections, possible artifact. No suspicious increased radiotracer uptak e in the osseous structures to suggest metastatic disease to the bone. Degenerative changes in the bi lateral knees are appreciated. IMPRESSION: No scintigraphic evidence for metastatic disease to the bone. [facility], , 07/26/2024 3:10 PM
--- NOTE | 2024-07-26 17:36 | CT ---
EXAMINATION TYPE: CT ChestAbdPelvis w con DATE OF EXAM: 07/26/2024 10:38 AM COMPARISON: None. 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 If MIP/3-D images were created, there are created on a separate workstation. Contrast used:100 mL of Isovue 300 with IV Contrast, (none if empty) Oral contrast used: with Oral Contrast (none if empty) CT DLP: 590.7 mGycm, Automated exposure control for dose reduction was used. FINDINGS: CT CHEST: Portion of the thyroid visualized is normal. No suspicious lung nodules or focal infiltrates are present. No enlarged mediastinal or hilar adenopathy is evident. The ascending aorta diameter at the level of the main pulmonary artery is 2.9 cm. The main pulmonary artery diameter at the bifurcation is 2.5 cm. Bilateral breast prostheses are present. CT ABDOMEN: Liver: Normal Spleen: Normal Pancreas: Atrophic Adrenal glands: The adrenal glands are normal. Gallbladder: Normal Kidneys: No masses are evident. No hydronephrosis is present. Small cortical renal cysts on the del ayed images Delayed images were obtained through the kidneys, which remain unremarkable. Aorta: Vascular calcification is within the aorta. Inferior vena cava: Normal. CT PELVIS: Loops of bowel within the abdomen and pelvis are normal. Some diffuse ill-defined thickening at t he rectum may be present. Appendix: Not identified Urinary bladder: Normal. Genitourinary structures: Uterus and ovaries are not identified Osseous structures: No suspicious lytic or sclerotic lesions. IMPRESSION: 1. Some ill-defined thickening through the level of the rectum may be present. Residual rectal and an al cancer not excluded. 2. No suspicious changes to suggest metastatic disease. [facility], , 07/26/2024 5:34 PM
== END | disposition home or self-care (01) ==
LOC: RADCTMAIN 08:34
PROVIDERS: ATTEND Internal Medicine Hematology & Oncology
DX: C50.411 Malignant neoplasm of upper-outer quadrant of right female breast (principal); M12.9 Arthropathy, unspecified; E78.5 Hyperlipidemia, unspecified; I10 Essential (primary) hypertension
CPT/HCPCS: 82565; 84520; 71260; 74177; 36415; 78306; A9503; Q9967